=== PATIENT | female | born 1995 | race Caucasian/White ===

== ENCOUNTER → 2024-01-03 17:30 | Outpatient (BNVA) | payer OTHER, SELFPAY | PROVIDERS: Visit Provider Registered Nurse Neonatal Intensive Care | DX: S90.31XA Contusion of right foot, initial encounter (principal); R52 Pain, unspecified; X58.XXXA Exposure to other specified factors, initial encounter | CPT/HCPCS: 73630 ==

== ENCOUNTER → 2024-03-14 09:21 | Outpatient (BNVA) | payer OTHER, SELFPAY | PROVIDERS: PCP Family Medicine; Visit Provider Family Medicine | DX: R10.11 Right upper quadrant pain (principal) | CPT/HCPCS: 80053; 85025 ==

== ENCOUNTER 2024-03-20 06:07 | Outpatient (CLI) | payer OTHER, SELFPAY ==
--- NOTE | 2024-03-20 06:30 | US_ITS ---
WS: [id number] RIGHT UPPER QUADRANT ULTRASOUND HISTORY: RUQ abd pain postprandial; colicky COMPARISON: None available. Liver: 16.5 cm in length. Normal size liver and echogenicity. No bile duct dilatation or mass. Portal Vein: Normal hepatopetal flow with monophasic waveform. Gallbladder: Normally distended gallbladder. There are a few small stones within the gallbladder. Gal lbladder wall is top normal size. No pericholecystic fluid. CBD: 0.4 cm Pancreas: Poorly visualized due to body habitus. Right kidney: 9.9 cm in length. Normal size and echogenicity. No hydronephrosis or mass. Aorta and IVC: Unremarkable abdominal aorta and IVC. No ascites. US/US abdomen limited 21782 IMPRESSION: 1. Cholelithiasis without acute cholecystitis. 2. Normal common bile duct.
== END 2024-03-20 06:08 | disposition home or self-care (01) ==
LOC: RAD 06:07
PROVIDERS: PCP Family Medicine; Visit Provider Family Medicine
DX: K80.20 Calculus of gallbladder without cholecystitis without obstruction (principal); R10.11 Right upper quadrant pain
CPT/HCPCS: 76705

== ENCOUNTER 2024-04-17 05:48 | Day surgery (SDC) | payer OTHER, SELFPAY ==
[2024-04-17] VITALS (16 sets, daily range): BP systolic 109–140; BP diastolic 63–98; PULSE 72–85; RESP 15–18; TEMP 36.4–37.5; O2SAT 90–98
--- NOTE | 2024-04-17 05:54 | P.HPUD_ITS ---
Surgery/Procedure H&P Update DATE OF PROCEDURE: April 17, 2024 DATE H&P PERFORMED: 03/28/24 H&P UPDATE INFORMATION: I have reviewed H&P completed within last 30 days, I have examined patient prior to procedure, No changes to prior documentation and H&P is in [facility] EMR on date indicated PLANNED PROCEDURE: Operation Date: 04/17/24 07:00 Proposed Procedures p Laparoscopic poss open Cholecystectomy -12582, K80.20(Not Applicable) - Layton Caraballo MD
[2024-04-17] MEDS: sodium chloride 0.9% 1,000 ML 30 ML IV (06:36)
[2024-04-17] MEDS: ceFAZolin 3,000 MG in sodium chloride 0.9% (plus) 100 ML 200 MG IV (07:04)
--- NOTE | 2024-04-17 07:10 | ANES.PREANE2 ---
Pre-Anesthetic Assessment Height/Weight: Height 1.68 m Weight 124.738 kg Pulse Resp BP Pulse Ox O2 Del Method 77 16 126/80 98 Room Air 04/17/24 06:30 04/17/24 06:30 04/17/24 06:30 04/17/24 06:30 04/17/24 06:30 Operation Date: 04/17/24 07:00 Proposed Procedures p Laparoscopic poss open Cholecystectomy -34662, K80.20(Not Applicable) - Layton Caraballo MD Familial anesthetic complications: None Was Beta Shelli taken within 24 hours: N/A Was Clonidine taken within 24 hours: N/A Last intake: Intake Last Liquid Date 04/16/24 Last Liquid Time 21:00 Last Solid Date 04/16/24 Last Solid Time 20:00 Social No alcohol and No tobacco Airway Mallampati: Class II Dentition: other (missing tooth) Metabolic Morbid Obesity Anesthetic Plan ASA status: 2 Anesthesia: General Risk of > 500 ml blood loss (7ml/kg in children): No Medications/Allergies Home Medications Medication Instructions Recorded Confirmed Last Taken Type dicyclomine 10 mg capsule 10 mg PO TID PRN abdominal pain 03/07/24 04/17/24 04/06/24 Rx #20 caps Allergies Allergy/AdvReac Type Severity Reaction Status Date / Time pepermint Allergy ADR-Seizure Uncoded 03/28/24 14:00 Current Medications Generic Name Dose Route Start Last Admin Trade Name Freq PRN Reason Stop Dose Admin Sodium Chloride 1,000 mls @ 30 mls/hr 04/17/24 06:15 04/17/24 06:36 Sodium Chloride 0.9% IV 04/18/24 06:14 30 mls/hr .Q24H KIESHA Administration PFSH Anesthesia Medical History Postprandial abdominal pain in right upper quadrant Surgical History Hx of nasal septoplasty History of tonsillectomy Family History Father Hypertension Asthma Heart attack Mother Diabetes mellitus, type 2 Bipolar disorder Social History Smoking and tobacco/nicotine status: former use of tobacco/nicotine Quit status (tobacco/nicotine): has quit using Year quit tobacco: 2014 Alcohol intake: current Alcohol intake frequency: holidays/special occasions only Alcohol type: hard liquor Substance/Drug Use: current Substance/Drug use frequency: Special occassions/opportunity only Household members: none Marital status: Single Number of children: 0 Highest education level completed: Some College, No Degree Current occupational status: employed Current occupation: [place] Do you think of yourself as: Lesbian/Ramirez/Homosexual Current gender identity: Female Data Anesthesia Cardiac Studies: No Data to Display
[2024-04-17 07:13] LABS: OR HCG Qualitative Urine Negative (Negative)
[2024-04-17] MEDS: lidocaine-epi 1% PF 1:200,000 30 mL SDV INJECTION (07:43)
[2024-04-17] MEDS: BUPivacaine 0.25% INJ 10 mL INJECTION (07:43)
--- NOTE | 2024-04-17 08:21 | PM.OP ---
Operative Report Date of procedure: April 17, 2024 Pre-op diagnosis: Symptomatic cholelithiasis Post-op diagnosis: Same Post-op findings: Normal biliary anatomy, there was a fingerlike projection of the liver extending on top of the gallbladder body, this was carefully dissected with electrocautery away from the gallbladder. Procedure done: Laparoscopic cholecystectomy Implants: None Specimens removed/disposition: Gallbladder Surgeon: Layton Caraballo MD Put In Beat Adjuster: LUCIANA OR STaff Estimated blood loss: 10 Brief History: This is a 28-year-old female who presented to my office with symptomatic lithiasis, after discussion of all risk and benefits as documented in my preop note we decided to proceed with laparoscopic possible open cholecystectomy. Procedure: Patient was brought into the OR, she was placed in a supine position. General anesthesia was given. The abdomen was prepped and draped in the usual sterile fashion. Timeout was conducted. The abdomen was accessed with an 5 mm Optiview trocar in the left upper quadrant, initial pneumoperitoneum was obtained and laparoscopy showed no evidence of visceral injury during entry. The patient was positioned in a reverse Trendelenburg position with the left side down. Additional 5 mm trocar was placed in a supraumbilical location under direct visualization, 5 mm trocars were placed in the epigastrium right upper quadrant and right flank under direct visualization. the gallbladder was grasped from the fundus and retracted cephalad, retraction was limited by an enlarged liver likely due to hepatic steatosis, despite this I was able to visualize infundibulum, the inflamed balloon was grasped and retracted in the inferolateral direction exposing the hepatocystic triangle, the peritoneum anterior to the hepatocystic triangle was opened with electrocautery, this opening was carried in the medial and lateral direction to the edges of the liver and then on the sides of the gallbladder to allow for better exposure. With careful blunt and sharp dissection with electrocautery I was able to encircle the cystic duct and the cystic artery, I was also able to elevate the gallbladder from the liver bed in the lower third. Critical view of safety was achieved. I then proceeded to double clipped the cystic duct and artery distally and single clipped proximally and I transected them. The gallbladder was removed from the liver bed using electrocautery, at the level of the body of the gallbladder a fingerlike projection from the left lobe of the liver was noted, this was carefully dissected of the body of the gallbladder without injuring the liver parenchyma. Once the gallbladder was completely excised, no evidence of bleeding or bile leak was noted and the clips were noted to be in a good position. The specimen was retrieved. The supraumbilical trocar site in an Endo Catch bag. The supraumbilical trocar site was closed with an 0 Vicryl using a Dylon-Claude suture passer under direct visualization. The epigastrium right upper quadrant and right flank trocars were removed under direct visualization the left upper quadrant trocar was used to evacuate the pneumoperitoneum and subsequently removed. Local anesthesia was infiltrated in all the wounds. The wounds were then closed in layers using #3-0 Vicryl for the subcutaneous tissue #4 Monocryl for the skin. Dermabond was applied. At the end of the procedure all counts were correct, the patient tolerated well the procedure was transferred to the PACU in stable condition.
[2024-04-17] MEDS: ondansetron 2 mg/ML SDV 2 mL 4 MG IVP ×2 (08:45→08:51)
[2024-04-17] MEDS: fentaNYL 50 mcg/mL INJ 2mL IVP (08:52)
[2024-04-17] MEDS: metoclopramide 5 mg/mL SDV 2 mL 10 MG IVP (09:00)
--- NOTE | 2024-04-17 10:00 | ANE.PACU2 ---
Inpatient post-anesthesia follow up: Airway intact: Yes Vital signs: Temperature 97.6 F Pulse Rate 75 Respiratory Rate 18 Blood Pressure 139/82 Pulse Oximetry 92 Oxygen Delivery Me thod Room Air Oxygen Flow Rate 2 Fraction of Inspir ed Oxygen Hydration adequate: Yes Nausea and vomiting: No Pain level: 1 Mental status: Baseline
== END 2024-04-17 10:03 | disposition home or self-care (01) ==
PROVIDERS: Anesthesiology; PCP Family Medicine; Visit Provider Surgery
PROC: 0FT44ZZ Resection of Gallbladder, Percutaneous Endoscopic Approach (ICD-10-PCS; CPT 47562; principal; 2024-04-17 07:00)
DX: K80.10 Calculus of gallbladder with chronic cholecystitis without obstruction (principal); E66.01 Morbid (severe) obesity due to excess calories; Z68.41 Body mass index [BMI] 40.0-44.9, adult; Z87.891 Personal history of nicotine dependence
CPT/HCPCS: 47562; 81025; 88304; J0690; J1100; J1171; J1885; J2250; J2405; J2704; J2765; J3010; J3490; J7030

== ENCOUNTER → 2024-04-24 10:54 | Outpatient (BNVA) | payer OTHER, SELFPAY | PROVIDERS: PCP Family Medicine; Visit Provider Family Medicine | DX: N92.1 Excessive and frequent menstruation with irregular cycle (principal); R74.8 Abnormal levels of other serum enzymes; R11.10 Vomiting, unspecified; B37.2 Candidiasis of skin and nail; I10 Essential (primary) hypertension | CPT/HCPCS: 80053; 84443; 85025 ==

== ENCOUNTER → 2024-04-25 14:34 | Outpatient (BNVA) | payer OTHER, SELFPAY | PROVIDERS: PCP Family Medicine; Visit Provider Family Medicine | DX: R11.10 Vomiting, unspecified (principal); R74.8 Abnormal levels of other serum enzymes | CPT/HCPCS: 80074; 82977; 83615; 84450; 84460 ==